=== PATIENT | female | born 1995 | race Caucasian/White ===

== ENCOUNTER 2021-06-13 14:31 | Outpatient (CLI) | payer OTHER ==
[~2021-06-13] VITALS: Ht 160 cm; Wt 73.2 kg
--- NOTE | 2021-06-13 14:40 | NUR ---
PT ARRIVES AMBULATORY TO UNIT C/O CONTRACTIONS SINCE 0 EVERY 5-8 MINUTES. DENIES LEAKING OF FLUID, BUT REPORTS SHE LOST HER MUCOUS PLUS THIS MORNING AROUND 0900. REPORTS POSITIVE MOVEMENT. NO FLUID PRESENT ON GLOVE WITH SVE. EFM/TOCO TRACING CATEGORY 1 STRIP, CONTRACTIONS Q8-10 MINUTES APART. SVE UPON ARRIVAL 0-/-3, POSTERIOR.
[2021-06-13] MEDS ORDERED: PRENATAL (14:59)
[2021-06-13 15:15] VITALS: BP 115/59; PULSE 82; TEMP 98.3
[2021-06-13 15:45] VITALS: BP 106/60; PULSE 74
--- NOTE | 2021-06-13 15:55 | NUR ---
PT MAY DC HOME PER . SEE PHYS NOTIFICATION. ALL DC PAPERWORK REVIEWED AND UNDERSTOOD. PT AMBULATORY FROM UNIT IN STBALE CONDITION.
== END 2021-06-13 15:55 | disposition home or self-care (01) ==
LOC: LDRO 14:31 → LDR 15:01 → LDRO 15:55
DX: Z34.93 Encounter for supervision of normal pregnancy, unspecified, third trimester (principal); Z3A.39 39 weeks gestation of pregnancy
CPT/HCPCS: OP

== ENCOUNTER 2021-06-14 17:23 | Outpatient (CLI) | payer OTHER ==
[~2021-06-14] VITALS: Ht 160 cm; Wt 73.5 kg
[~2021-06-14 17:23] MED LIST: PRENATAL
--- NOTE | 2021-06-14 17:35 | NUR ---
Patient ambulates to LR4 with spouse, changed into gown, FHR/TOCO monitors placed and explained. Patient here yesterday for labor check. Patient here with complaints of leaking fluid and regular contractions. Patient states "having to change my underwear because leaking fluid and contractions are stronger and every 2-5 minutes". Patient denies recent intercourse, vaginal bleeding, or decreased fertal movement. Plan of care discussed. 1740: YE Khoury RN / and amniotest negative with no fluid noted on glove. RN states she feels intact membranes. Patient updated on plan of care and questiosn answered.
[2021-06-14 18:00] VITALS: BP 125/81; PULSE 69; TEMP 97.5
--- NOTE | 2021-06-14 18:50 | NUR ---
Repeat SVE with no changes. Unable to illicit pooling, no loss of fluid or vaginal bleeding. Exam discussed with pt and spouse.
[2021-06-14 18:55] VITALS: BP 117/68; PULSE 73
--- NOTE | 2021-06-14 19:15 | NUR ---
Discharge instructions reviewed with pt and spouse. Questions invited and answered. Ambulatory off unit.
== END 2021-06-14 19:15 | disposition home or self-care (01) ==
LOC: LDRO 17:23
DX: O62.9 Abnormality of forces of labor, unspecified (principal); Z3A.39 39 weeks gestation of pregnancy

== ENCOUNTER 2021-06-15 15:50 | Inpatient (IN) | payer OTHER ==
[2021-06-15] VITALS (23 sets, daily range): BP systolic 89–131; BP diastolic 50–83; PULSE 75–91; TEMP 88.4
--- NOTE | 2021-06-15 16:00 | NUR ---
Patient ambulatory to LR1 with spouse, changed into gown, FHR/TOCO monitors placed and explained. Patient was just at appointment with Dr. Montoya and has changed from 1cm to 3cm since yesterday. Patient states has continued to have regular contractions and Dr. Montoya just stripped membranes at appointment. Plan of care discussed. 1605: SVE-3/100/-2 with bloody show noted. Intact membranes felt.
--- NOTE | 2021-06-15 16:46 | NUR ---
Patient off monitors to ambulate. 171: Patient on monitors. 171: SVE 3-4/100/-2 and Roles notified and orders received to labor check another hour. 181: SVE 4/100/-2 and Roles at nurses station and updated and orders to admit. Giuliano BOYD given report and assumes care of patient.
--- NOTE | 2021-06-15 18:40 | NUR ---
1840 ADMISSION ORDER RECEIVED AND PT ADM INPT. ACCOUNT[employer] SUPERVISOR CALLED FOR EPID REQUEST. IV FLUIDS STARTED AND PERMITS SIGNED.
--- NOTE | 2021-06-15 19:05 | NUR ---
1905 UP TO BR AND VOIDED. SITTING ON SIDE OF BED FOR EPIDURAL PLACEMENT SEE ANESTHESIA RECORD FOR MORE INFORMATION.
[2021-06-15 19:13] LABS: BASO # 0.1 K/mm3 (0.0-0.2); BASO % 0.3 % (0.0-2.0); EOS # 0.1 K/mm3 (0.0-0.7); EOS % 0.8 % (0-4.0); GRAN # 12.3 K/mm3 (1.4-6.5); GRAN % 79.9 % (42.2-75.2); HEMATOCRIT 39.1 % (37.0-47.0); HEMOGLOBIN 13.3 g/dl (12.5-16.0); LYMPH # 1.6 K/mm3 (1.2-3.4); LYMPH % 10.3 % (20.0-51.0); MEAN CELL VOLUME 81 fl (80.0-100.0); MEAN CORPUSCULAR HEMOGLOBIN 28 pg (27.0-31.0); MEAN CORPUSCULAR HGB CONC 34 g/dl (33.0-37.0); MEAN PLATELET VOLUME 11.8 fl (7.4-10.4); MONO # 1.3 K/mm3 (0.1-0.6); MONO % 8.2 % (1.7-9.3); PLATELET COUNT 220 K/mm3 (130-400); RED BLOOD COUNT 4.82 M/mm3 (4.10-5.30); REDCELL DISTRIBUTION WIDTH-CV 14.6 % (11.5-14.5)
--- NOTE | 2021-06-15 20:10 | NUR ---
2009 PT CALLED OUT THAT SHE IS LEAKING FLUID. 2019 LARGE AMOUNT AMNIOTIC FLUID NOTED, MED STAINED. SVE /-2. FHT BASELINE 130 WITH DECREASE IN FHT TO 95 X 30 SECONDS WITH RETURN TO BL FOR 50 SECONDS AND THEN CECREASE TO 95 X50 SECONDS WITH RETURN TO BL. PT TURNED, IV FLUIDS INCREASED AND SVE DONE.
--- NOTE | 2021-06-15 20:30 | NUR ---
2029 EARLY DECELS NOTED FROM BL 130 TO 90 WITH CONTRACTIONS. B/P 105/55. 2034 EPHEDRINE 10MG IVP GIVEN.
[2021-06-16] VITALS (57 sets, daily range): BP systolic 99–134; BP diastolic 54–82; PULSE 74–104; TEMP 97.8–98.4
--- NOTE | 2021-06-16 02:15 | NUR ---
0215 SITTING UP IN [facility]. FHT BASELINE 155-160 WITH VARIABLE DECELS. TURNED TO RIGHT LATERAL WITH PEANUT BALL. PITOCIN DECREASED TO 6 MU/MIN.
--- NOTE | 2021-06-16 02:45 | NUR ---
0245 BASELINE OF 150'S WITH DECREASE TO 130'S STARTING AFTER CONTRACTION STARTED AND ENDING AFTER CONTRACTION FINISHED FOR SEVERAL CONTRACTIONS. PITOCIN OFF AT THIS TIME AND TURNED TO LL WITH PEANUT BALL. SLEEPING IN BETWEEN DISTURBANCES.
--- NOTE | 2021-06-16 04:10 | NUR ---
0410 SVE 7/100/-2 WITH BLOODY SHOW. TURNED TO RIGHT LATERAL WITH PEANUT BALL. PITOCIN RESTARTED AT 2 MU/MIN.
--- NOTE | 2021-06-16 07:26 | NUR ---
0610 FHT DECREASED TO 90-100 FOR 5 MIN. PATIENT REPOSITIONED TO HIGH RIDE SIDE. SVE 7/80/-2 CERVIX FELT SWOLLEN. PITOCIN TURNED OFF. IVF WIDE OPEN, AND O2 10L/MASK. 0615 PATIENT REPOSIONED TO HIGH LEFT WITH PEANUT BALL. PITOCIN REMAINS OFF AND O2 ON. DR MERCADO AND ROLES BOTH CALLED AND UPDATED AND WILL HEAD TO HOSPITAL TO EVALUATE.
--- NOTE | 2021-06-16 07:35 | NUR ---
0645 DR MERCADO HERE. RESTART PITOCIN PER ORDER AT 6MU. PITOCIN RESTARTED. PATIENT HIGH LEFT HOB ELEVATED, WITH PEANUT BALL. FHT 130 NO DECCELERATIONS NOTED.
--- NOTE | 2021-06-16 09:13 | NUR ---
0845 patient positioned to left side lying release for 20 min.
--- NOTE | 2021-06-16 09:16 | NUR ---
0905 PATIENT PSITIONED TO RIGHT SIDE LYING RELEASE.
--- NOTE | 2021-06-16 12:16 | NUR ---
1110 PATIENT FEELING PRESSURE. SVE 10/100/+2, WILL START PUSHING WITH NEXT CONTRACTIONS. DR MERCADO CALLED AND UPDATED AND WILL HEAD OVER FOR DELIVERY. 1125 SALAZAR OUT AT THIS ITME. 400 CC. CONTINUE TO PUSH WITH EACH CONTRACTION. 1130 DR MERCADO HERE FOR DELIVERY, PATIENT PREPPED FOR DELIERY AND PHYLLISITNUES TO PUSH WITH CONTRACTIONS. [address] MERCADO. BABY BOY. CORD CLAMPED AND CUT BY DR. MERCADO AND TO MOMS CHEST FOR SKIN TO SKIN. STRONG CRY NOTED. 1147 PLACENTA DELIVERED AT THIS TIME. PITOCIN STARTED PER PROTOCOL. FUNDUS FIRM. BLEEDING WNL. PATIENT DENIES NEEDS
--- NOTE | 2021-06-16 12:47 | NUR ---
1135: this rn assumes care of pt for lunch relief.
[2021-06-17] VITALS: BP 116/73; PULSE 82; TEMP 98.3
[2021-06-17 04:30] VITALS: BP 98/60; PULSE 80; TEMP 97.5
[2021-06-17 09:00] VITALS: BP 108/70; PULSE 89; TEMP 98
--- NOTE | 2021-06-17 10:13 | NUR ---
Initial Visit; Parents thanked Fixture Builder for offering congratulations and God's blessings for the of their son. Fixture Builder thanked family for choosing [facility].
[2021-06-17 17:00] VITALS: BP 116/62; PULSE 78; TEMP 98.2
[2021-06-17 20:00] VITALS: BP 122/60; PULSE 79; TEMP 97.7
[2021-06-18 08:00] VITALS: BP 113/58; PULSE 68; TEMP 98.2
[2021-06-18] MEDS ORDERED: IBU800 M1 PO (09:02)
== END 2021-06-18 13:55 | disposition home or self-care (01) | DRG 807 ==
LOC: LDRO 15:50 → OB 18:27 → LDR 18:27 → OB 06-16 13:28
PROVIDERS: ADMIT Obstetrics & Gynecology
PROC: 10E0XZZ Delivery of Products of Conception, External Approach (ICD-10-PCS; principal; 2021-06-16)
PROC: 0UQMXZZ Repair Vulva, External Approach (ICD-10-PCS; 2021-06-16)
DX: O99.02 Anemia complicating childbirth (principal); Z37.0 Single live birth; O77.0 Labor and delivery complicated by meconium in amniotic fluid; D64.9 Anemia, unspecified; O69.81X0 Labor and delivery complicated by cord around neck, without compression, not applicable or unspecified; O70.0 First degree perineal laceration during delivery; Z3A.39 39 weeks gestation of pregnancy
CPT/HCPCS: J2405; J2590; J2795; J7120